=== PATIENT | female | born 1940 ===

== ENCOUNTER 2020-12-13 12:53 | Outpatient (CLI) | payer MEDICARE, OTHER, SELFPAY ==
--- NOTE | 2020-12-13 13:45 | DI.CT_ITS ---
Exam(s) CT HEAD CERVICAL SPINE WO EXAM: CT HEAD CERVICAL SPINE WO CLINICAL HISTORY: HEAD INJURY,S09.90XA,NECK ARTHRALGIA,M25.50,RT HEMATOMA,? NECK FX, ? HEMORR. TECHNIQUE: Imaging Protocol: Axial computed tomography images with coronal and sagittal reformatted images were created and reviewed COMPARISON: No exams were available for comparison FINDINGS: BRAIN: There is a scalp hematoma right parietal side There are no skull fractures nor fluid in the visualized paranasal sinuses. There is no evidence of intracranial hemorrhage, mass effect, or shift of midline structures. There are no extra-axial fluid collections. The ventricles are not enlarged or shifted and there is no blo od within the ventricular system nor within the basal cisterns. Some periventricular subcortical white matter hypodensity is seen in temporoparietal region. CERVICAL SPINE: There is no evidence of fracture nor listhesis. No significant prevertebral soft tissue swelling. There is advanced disc space narrowing at C5-6 level anterior osteophytes. Also bilateral Luschka xiomara int osteophytes at this level. Multilevel facet arthropathy. There is no significant facet joint malalignment. No significant osseous lesions evident. IMPRESSION: Right scalp hematoma. No evidence of intracranial hemorrhage. White matter hypodensity left parieta l, probably related to prior ischemic events. No evidence of cervical spine fracture, malalignment, nor acute compromise of the cervical spinal can al. RADIATION DOSE DELIVERED: 1,520.14mGy.cm Total DLP DATA REPOSITORY: All CT scans at this facility are submitted to the National Radiology Data Registry (NRDR) Dose Index Registry (DIR) with the [employer] ([employer]). RADIATION OPTIMIZATION: All CT scans at this facility use at least one of these dose optimization te chniques: automated exposure control; mA and/or kV adjustment per patient size (includes targeted exa ms where dose is matched to clinical indication); or iterative reconstruction.
== END 2020-12-13 13:13 ==
LOC: LBN 13:03 → DI 13:11
PROVIDERS: Visit Provider Physician Assistant Medical
DX: M25.59 Pain in other specified joint (principal); S09.90XA Unspecified injury of head, initial encounter; S00.03XA Contusion of scalp, initial encounter
CPT/HCPCS: 70450; 72125